=== PATIENT | male | born 1960 | race Caucasian/White ===

== ENCOUNTER → 2018-04-15 | Outpatient (CLI) | payer MEDICAID ==
[~2018-04-15] MED LIST: FLEC50TA25 PO
== END | disposition home or self-care (01) ==
LOC: CFH 13:11
PROVIDERS: ATTEND Internal Medicine Critical Care Medicine
DX: J96.10 Chronic respiratory failure, unspecified whether with hypoxia or hypercapnia (principal); N20.0 Calculus of kidney
CPT/HCPCS: 71250